=== PATIENT | female | born 1995 | race Caucasian/White ===

== ENCOUNTER → 2018-08-09 | Outpatient (CLI) | payer OTHER ==
[~2018-08-09] MED LIST: AMOXICILLIN 50500 M1 PO; FLOXIN OTI0.3 %/5 M1 OT; MUCINEX D TABL1 EAC1 PO; ZYRTEC10 M2 PO
== END ==
LOC: M.ULTRA 09:01
DX: R10.2 Pelvic and perineal pain (principal)

== ENCOUNTER 2018-12-31 07:00 | Emergency (ER) | payer OTHER ==
[~2018-12-31] VITALS: Ht 170.2 cm; Wt 85.3 kg
[2018-12-31 08:19] VITALS: BP 127/77
== END 2018-12-31 08:19 | disposition short-term general hospital (02) ==
LOC: M.ERS 07:00
DX: O46.92 Antepartum hemorrhage, unspecified, second trimester (principal); Z3A.27 27 weeks gestation of pregnancy